=== PATIENT | female | born 1980 | race Caucasian/White ===

== ENCOUNTER 2024-12-29 13:58 | Outpatient (CLI) | payer OTHER, SELFPAY ==
--- NOTE | ~2024-12-29 | MR_ITS ---
EXAMINATION: MR brain/brain stem wo con DATE: 12/29/2024 14:36 INDICATION: Epilepsy TECHNIQUE: Magnetic resonance imaging (MRI) of the brain and brainstem was performed without intraven ous contrast. Sequences included sagittal and axial T1-weighted SE, axial diffusion-weighted FS SE, a xial T2*-weighted GRE, axial T2-weighted FLAIR Propeller, axial T2-weighted Propeller, coronal T2-meri ghted FLAIR, and coronal T1-weighted 3D FSPGR. Apparent diffusion coefficient (ADC) maps were create d. COMPARISON: None. FINDINGS: There are no areas of restricted diffusion to suggest acute infarction. No intracranial hemorrhage or abnormal intracranial mass lesion. There are scattered areas of nonspecific increased T2-weighted si gnal intensity in the cerebral white matter, predominantly involving the deep and periventricular whi te matter. Normal and symmetric bilateral hippocampi. No evident lizarraga matter heterotopias or other ne uronal migrational abnormalities identified. There are no intraparenchymal signal abnormalities seen on the other pulse sequences. The ventricles are symmetric and normal in size. There are no abnormal extra-axial fluid collections. Flow voids are seen in the cerebral arteries on the T2-weighted sequen hadley consistent with their expected patency. Mucosal thickening in the paranasal sinuses, moderate at the bilateral ethmoid and maxillary sinuses and mild in the bilateral sphenoid and frontal sinuses. V isualized orbits and soft tissues are unremarkable. IMPRESSION: 1. Normal brain. Reviewed, dictated and finalized at location A. IMPRESSION: 1. Normal brain.
== END 2024-12-29 13:59 | disposition home or self-care (01) ==
PROVIDERS: PCP Family Medicine Sports Medicine; Visit Provider Student in an Organized Health Care Education/Training Program
DX: G40.909 Epilepsy, unspecified, not intractable, without status epilepticus (principal)
CPT/HCPCS: 70551

== ENCOUNTER 2025-02-02 08:45 | Outpatient (CLI) | payer OTHER, SELFPAY ==
--- OUTSIDE RECORDS SUMMARY | 2025-02-02 08:53 | XMS_ITS | Clinical Summary ---
Author Organization [address] Address [address] [place] [id number] Care Team Providers Care Med Dir Name Role Phone Celina Aleman DO Primary Care Provider [phone] Allergies Active Allergy Reactions Criticality Noted Date Comments Sulfa (Sulfonamide Antibiotics) Vomiting High 02/2012 Medications albuterol HFA (PROVENTIL HFA,VENTOLIN HFA,PROAIR HFA) 90 mcg/actuation inhaler Inhale 2 puffs every 4 (four) hours as needed 0 Active cholecalciferol (VITAMIN D-3) 25 mcg (1,000 unit) tablet Take 1,000 Units by mouth daily Active lamoTRIgine (LaMICtal) 150 mg tablet Take 1 tablet by mouth 2 (two) times a day 8 Active zolpidem (AMBIEN) 5 mg tabletIndicatio ns:Sleep-Onset Insomnia Take 1 tablet (5 mg total) by mouth nightly as needed for sleep 30 tablet 3 1 Active fluticasone propionate (FLONASE) 50 mcg/actuation nasal sprayIndication s:MYRA (obstructive sleep apnea) Administer 2 sprays into each nostril daily 1 spray 11 1 Active valACYclovir (VALTREX) 500 mg tablet 1 Active armodafiniL (NUVIGIL) 150 mg tabletIndicatio ns: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 Because of her slight increase in the AHI, I will increase the CPAP setting to 10 cm of water. Her DME supplier is [employer]. She will follow-up here in 3 months. She will contact [employer] to change styles of mask when time permits. Assessment & Plan (05/19/2021 3:22 PM CDT): I did encourage the patient to use the CPAP more consistently. She is making progress. I will order Flonase and Zyrtec for her to use at bedtime to see if this will decrease the nasal congestion and drainage to a lower to use the unit for longer periods of time. I will also send an order to [employer] in [place], [place] for her to pick out a different style of mask. Assessment & Plan (01/25/2021 4:02 PM CDT): I encouraged the patient to use the Ambien 5 mg at bedtime to allow her to use the CPAP consistently at 8 cm water pressure. Hopefully, consistent CPAP use will improve her daytime hypersomnia. She should follow-up here in 3 months. Assessment & Plan (11/22/2020 4:30 PM PORTABLE FEED MILL OPERATOR): Patient continue to wear her CPAP at 8 cm water pressure while sleeping. 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 I will give her a prescription for Nuvigil 150 mg take in the morning. Assessment & Plan (05/19/2021 3:24 PM CDT): I did tell the patient that she would be eligible for stimulant therapy if she becomes compliant with her CPAP unit and the hypersomnia persists. I also recommended that she restart the vitamin-D. Assessment & Plan (01/25/2021 4:03 PM CDT): The patient still has hypersomnia but has not been consistent in her CPAP use. I did tell her that I would be willing to order stimulant medication for her if she continues to have daytime hypersomnia with consistent CPAP use. Assessment & Plan (11/22/2020 4:30 PM PORTABLE FEED MILL OPERATOR): I will give the patient Ambien 5 mg to see if this will help consolidate her sleep at night. The patient will call in if she experiences any side effects. If the Ambien does consolidate her sleep. The next possible medication would be to start Nuvigil. Primary insomnia 11/22/2020 Assessment & Plan (07/21/2021 3:17 PM CDT): The patient is not having any difficulty at this time initiating sleep and is no longer taking Ambien. Assessment & Plan (05/19/2021 3:24 PM CDT): She does have Ambien to use at bedtime at 5 mg p.o.. Assessment & Plan (01/25/2021 4:03 PM CDT): The patient did state that the Ambien 5 mg at bedtime did help consolidate her sleep and I encouraged her to use a consistently with the CPAP in place. Assessment & Plan (11/22/2020 4:30 PM PORTABLE FEED MILL OPERATOR): The patient was given Ambien 5 mg p.o. q.h.s.. Low vitamin D level 11/22/2020 Overview (11/22/2020): The patient is currently on vitamin-D supplement. Assessment & Plan (07/21/2021 3:17 PM CDT): The patient is currently on vitamin-D supplementation. Medical History Medical History Date Comments Sleep apnea, obstructive Family History Medical History Relation Name Comments Diabetes Father Heart attack Father Cancer Mother Relation Name Status Comments Father Alive Mother Alive breast CA Social History Tobacco Use Types Packs/Day Years Used Date Smoking Tobacco: Never Smokeless Tobacco: Never AUDIT-C Answer Date Recorded Q1: How often do you have a drink containing alc ohol? Never 07/21/2021 Average Number of Drinks Not on file Q3: How often do you have si x or more drinks on one occasion? Never 07/21/2021 Personal Safety Answer Date Recorded Getting School Help Needed Not on file 11/18 Comments Unknown Sex and Gender Information Value Date Recorded Sex Assigned at Not on file Legal Sex Female 1:00 AM PORTABLE FEED MILL OPERATOR Gender Identity Not on file Sexual Orientation Not on file Obstetrics History Last Filed Vital Signs Vital Sign Reading Time Taken Comments Blood Pressure 116/72 07/21/2021 2:15 PM CDT Pulse 62 07/21/2021 2:15 PM CDT Temperature 36.6 C (97.8 F) 07/21/2021 2:15 PM CDT Respiratory Rate 18 07/21/2021 2:15 PM CDT Oxygen Saturation 98% 07/21/2021 2:15 PM CDT Inhaled Oxygen Concentration - - Weight 87.5 kg (193 lb) 07/21/2021 2:15 PM CDT Height 162.6 cm (5' 4 ) 07/21/2021 2:15 PM CDT Body Mass Index 33.13 07/21/2021 2:15 PM CDT Plan of Treatment Not on file Insurance [employer] [facility] Member Subscriber Plan / Payer (Ef fective 2019-Present) Name:Vivi Sanford Member ID:[id number] Relation to Subscriber:Self Name:Vivi Sanford Subscriber ID:[id number] Payer ID:[id number] Type:[employer] HMO/PPO Address: [facility] [id number] [place] [id number] COUNT INCLUDES THE [facility] [id number] Member Subscriber Plan / Payer (Ef fective 2020-Present) Name:DameoncraigVivi Member ID:[id number] Relation to Subscriber:Self Name:Juvenal Vivi Arroyo Subscriber ID:[id number] Payer ID:[id number] Type:[employer] HMO/PPO Address: [place] [address] Care Teams Med Dir Relationship Specialty Start Date End Date Celina Aleman DO [address] [place] [address] [place] [id number] PCP - General 10/30/19
--- OUTSIDE RECORDS SUMMARY | 2025-02-02 08:53 | XMS_ITS | Encounter Summary ---
Author Organization [facility] Address [address] [place] [address] Care Team Providers Care Industrial Maintenance Electrician Name Role Phone Celina Aleman DO Primary Care Provider [phone] Encounter Details Date Type Department Care Team (Late st Contact Info) Description 06/27/2023 MyCintelloCutt Message Enc [facility] Family & Internal Medicine [address] [id number] Mychart, [facility] Provider Screening Social History Tobacco Use Types Packs/Day Years Used Date Smoking Tobacco: Never Smokeless Tobacco: Never Alcohol Use Standard Drinks/Week Comments Yes 0 (1 standard drink = 0.6 oz pur e alcohol) occasionally Comments No Sex and Gender Information Value Date Recorded Sex Assigned at Female 07/20/2020 11:24 AM CDT Legal Sex Female 6:34 PM CDT Gender Identity Female 07/20/2020 11:24 AM CDT Sexual Orientation Straight 07/20/2020 11 :24 AM CDT documented as of this encounter Plan of Treatment Upcoming Encounters Date Type Department Care Team (Late st Contact Info) Description 03/09/2025 7:00 AM CDT Office Visit [facility] [address] [place] [address] Sravanthi Dickson V, [place] [address] [place] [phone] documented as of this encounter Visit Diagnoses Not on filedocumented in this encounter Additional Health Concerns Infection Onset Date Last Indicated Resolved Time COVID-19 Rule Out 11/15/2023 11/15/2023 11/15/2023 3:46 PM ANIMAL KILLER COVID-19 Rule Out 09/25/2024 09/25/2024 09/25/2024 5:48 PM ANIMAL KILLER documented as of this encounter Care Teams Industrial Maintenance Electrician Relationship Specialty Start Date End Date Celina Aleman DO [address] [place] [address] [address] [place], [place] [phone] PCP - General FAMILY PRACTICE 01/01/20 documented as of this encounter
--- OUTSIDE RECORDS SUMMARY | 2025-02-02 08:53 | XMS_ITS | Clinical Summary ---
Author Organization [facility] Address [address] [place] [address] Care Team Providers Care Dynamics Ax Developer Name Role Phone Celina Aleman DO Primary Care Provider Allergies Active Allergy Reactions Criticality Noted Date Comments Sulfa Antibiotics Vomiting High 03/29/2012 Medications vitamin D3, cholecalciferol, (VITAMIN D) 1000 UNIT Tab tablet Take 1 tablet (1,000 Units total) by mouth daily. Active lamoTRIgine (LAMICTAL) 150 MG tabletIndications :Seizure disorder (CMS/HCC HHS/HCC) Take 1 tablet (150 mg total) by mouth 2 (two) times daily. 180 tablet 1 4 Active albuterol sulfate HFA 108 (90 Base) MCG/ACT inhalerIndication s:Bronchitis,Seas onal allergies Inhale 2 puffs into the lungs every 4 (four) hours as needed for Wheezing. 18 g 12 4 Active montelukast (SINGULAIR) 10 MG tabletIndications :Mild intermittent asthma with exacerbation ([facility]) Take 1 tablet (10 mg total) by mouth nightly at bedtime. 30 tablet 5 Active fluticasone-salme terol (WIXELA INHUB) 250-50 MCG/ACT inhalerIndication s:Mild intermittent reactive airway disease without complication ([facility]/HCC),Acute bronchitis, unspecified organism Inhale 1 puff into the lungs 2 (two) times daily. 14 each 5 Active topiramate (TOPAMAX) 25 MG tabletIndications :Class 1 obesity due to excess calories with serious comorbidity and body mass index (BMI) of 32.0 to 32.9 in adult,History of headache Take 1 tablet (25 mg total) by mouth 2 (two) times daily for 30 days. 60 tablet 5 02/05/20 25 Active Phentermine HCl 15 MG CapIndications:Cl ass 1 obesity due to excess calories with serious comorbidity and body mass index (BMI) of 32.0 to 32.9 in adult Take 15 mg by mouth daily for 30 days. 30 capsule 5 02/05/20 25 Active Phentermine HCl 8 MG TabIndications:Cl ass 1 obesity due to excess calories with serious comorbidity and body mass index (BMI) of 32.0 to 32.9 in adult Take 8 mg by mouth every evening for 30 days. 30 tablet 5 02/05/20 25 Active topiramate (TOPAMAX) 25 MG tabletIndications :Class 1 obesity due to excess calories with serious comorbidity and body mass index (BMI) of 32.0 to 32.9 in adult,History of headache Take 1 tablet (25 mg total) by mouth 2 (two) times daily. 60 tablet 5 01/06/20 25 Discontinu ed(Reorder ) Phentermine HCl 8 MG TabIndications:Cl ass 1 obesity due to excess calories with serious comorbidity and body mass index (BMI) of 32.0 to 32.9 in adult Take 8 mg by mouth every evening. Part of 15mg in am and 8mg in pm 30 tablet 5 01/06/20 25 Discontinu ed(Reorder ) Phentermine HCl 15 MG CapIndications:Cl ass 1 obesity due to excess calories with serious comorbidity and body mass index (BMI) of 32.0 to 32.9 in adult Take 15 mg by mouth daily. Part of 15mg in am and 8mg in pm 30 capsule 5 01/06/20 25 Discontinu ed(Reorder ) Active Problems Problem Noted Date Diagnosed Date Dysfunction of both eustachian tubes 11/14/2024 Class 1 obesity due to exces s calories with serious comorbidity and body mass index (BMI) of 32.0 to 32.9 in adult 07/29/2024 Prediabetes 07/29/2024 Vitamin D deficiency 11/22/2020 Overview (09/15/2021): The patient is currently on vitamin-D supplement. Last Assessment & Plan: The patient is currently on vitamin-D supplementation. MYRA (obstructive sleep apnea) 11/22/2020 Overview (09/15/2021): Last Assessment & Plan: The patient is benefiting from CPAP at 8 cm water pressure. Because of her slight increase in the AHI, I will increase the CPAP setting to 10 cm of water. Her DME supplier is [employer]. She will follow-up here in 3 months. She will contact [employer] to change styles of mask when time permits. Primary insomnia 11/22/2020 Overview (09/15/2021): Last Assessment & Plan: The patient is not having any difficulty at this time initiating sleep and is no longer taking Ambien. Epilepsy complicating pregna ncy, childbirth, or puerperium, antepartum ([facility]) 03/29/2012 Hypersomnia due to medical condition 03/29/2012 Overview (09/15/2021): Last Assessment & Plan: The patient is complying with CPAP therapy and remains sleepy during the day. I will give her a prescription for Nuvigil 150 mg take in the morning. Encounters Date Type Department Care Team Description 01/05/2025 3:40 PM CDT Office Visit [address] [place], [place] [phone] Mikel Dickson MD Follow Up (Patient is here for a 2 week weight management follow up. ) 01/05/2025 Travel 12/29/2024 Scan HEALTH INFO SRVCS Scanned, [facility] MRI (SCAN) 12/22/2024 7:00 AM CDT Office Visit [place] [address] [place] [address] Sravanthi Dickson FNP-BC Follow Up (Pt is here for a weight management follow up) 12/22/2024 Travel 12/01/2024 8:20 AM CDT Office Visit [facility] [address] [place] [address] Mikel Dickson MD Follow Up (Pt is here for a weight management f/u, Pt states he is doing better since her cough is going away. ) 12/01/2024 Travel 11/14/2024 7:00 AM TISSUE INSERTER Office Visit [facility] [address] [place] [address] Sravanthi Dickson FNP-BC Weight Check (WEIGHT MANAGEMENT FOLLOW UP - 2 week weight f/u/) 11/14/2024 Travel from Last 3 Months Immunizations Immunization Administration Dates Next Due PFIZER COVID-19 (ORIGINAL FO RMULATION, PURPLE CAP) mRNA, LNP-S, PF, 30 MCG/0.3 ML DOSE 06/09/2021,05/19/2021 Family History Medical History Relation Comments Breast Cancer Mother Relation Status Comments Father Alive Coronary artery disease, diabetes, [place], CABG,mi , cabgx4 Mother Alive Osteoarthritis Sister Alive Social History Tobacco Use Types Packs/Day Years Used Date Smoking Tobacco: Never Smokeless Tobacco: Never Tobacco Cessation:Counseling Given: Not Answered Alcohol Use Standard Drinks/Week Comments Yes 0 (1 standard drink = 0.6 oz pur e alcohol) occasionally PHQ-2 Answer Date Recorded Patient Health Questionnaire-2 Score 0 12/22/2024 Comments No Sex and Gender Information Value Date Recorded Sex Assigned at Female 07/20/2020 11:24 AM CDT Legal Sex Female 6:34 PM CDT Gender Identity Female 07/20/2020 11:24 AM CDT Sexual Orientation Straight 07/20/2020 11 :24 AM CDT Last Filed Vital Signs Vital Sign Reading Time Taken Comments Blood Pressure 106/76 01/05/2025 3:40 PM CDT Pulse 80 01/05/2025 3:40 PM CDT Temperature 37.1 C (98.7 F) 01/05/2025 3:40 PM CDT Respiratory Rate 16 01/05/2025 3:40 PM CDT Oxygen Saturation 99% 01/05/2025 3:40 PM CDT Inhaled Oxygen Concentration - - Weight 88.5 kg (195 lb) 01/05/2025 3:40 PM CDT Height 165.1 cm (5' 5 ) 01/05/2025 3:40 PM CDT Body Mass Index 32.45 01/05/2025 3:40 PM CDT Plan of Treatment Upcoming Encounters Date Type Department Care Team (Late st Contact Info) Description 03/09/2025 7:00 AM CDT Office Visit [facility] [address] [place], [place] [phone] Sravanthi Dickson V, [facility]- [address] [place] [phone] Health Maintenance Due Date Last Done Comments Cervical Cancer Screening Pa p Smear (Age 30 to 64) Every 3 Years 1982 Annual Physical 1985 Hepatitis C 2000 DTaP, Tdap and Td Vaccines ( 1 - Tdap) 2001 Hepatitis B Vaccines (1 of 3 - 19+ 3-dose series) 2001 Pneumococcal Vaccine: Pediatrics (0 to 5 Years) and At-Risk Patients (6 to 49 Years) (1 of 2 - PCV) 2001 Cervical Cancer Screening Pa p with HPV Testing (Age 30 to 64) Every 5 Years 2012 Cervical Cancer Screening wi th HPV 2012 COVID-19 Vaccine (3 - 2023-2 5 season) 2024 06/09/2021, 05/19/2021 Mammogram Screening 04/14/2026 04/14/2024 PHQ-2 (Physician [place]) Completed 12/22/2024 HPV Vaccines Aged Out No longer eligi ble based on patient's age to complete this topic Meningococcal B Vaccine Aged Out No l onger eligible based on patient's age to complete this topic Meningococcal Vaccine Aged Out No dayne jonathon eligible based on patient's age to complete this topic RSV Immunizations Under 20 Months Aged Out No longer eligible b ased on patient's age to complete this topic Procedures Procedure Name Priority Date/Time Associated Diagnosis Comments MRI GENERIC 12/29/2024 MG SCREENING W CHARLETTE LARON DIGI Routine 04/14/2024 4:15 PM CDT Encounter for screening mammogram for malignant neoplasm of breast from Last 3 Months or Most Recently Relevant to Health Maintenance Results * MRI GENERIC (12/29/2024) Anatomical Region Laterality Modality Other 12/29/2024 us [facility] Scanned SCANNING Final Resu lt * MG SCREENING W CHARLETTE LARON DIGI (04/14/2024 4:15 PM CDT) Anatomical Region Laterality Modality Breast Bilateral Mammography 04/15/2024 12:5 6 PM CDT Impressions 04/15/2024 2:28 PM CDT ===== IMPRESSION: ===== 1. No mammographic evidence of malignancy. Assessment: ACR BI-RADS 2 - BENIGN FINDING(S) Recommendation: 1:Routine Screening Bilateral Comments: Ordered By: CELINA ALEMAN Interpreted By: Kanwal Longoria, 04/15/2024 12:56 PM Narrative 04/15/2024 2:28 PM CDT EXAMINATION: Digital bilateral screening mammogram with 3-D tomosynthesis EXAM DATE/TIME: 04/14/2024 3:38 PM REASON FOR EXAM: Routine screening Mother with breast carcinoma age 35 COMPARISON: Baseline exam Technique: Digital screening mammography of both breasts was performed in addition to 3-D Tomosynthesis technique. This study was read with the assistance of a computer-aided detection system. Tissue density: There are scattered areas of fibroglandular density. Findings: There is no focal asymmetry, dominant mass lesion, area of skin thickening, or cluster of suspicious appearing calcifications in either breast to suggest malignancy. Benign lymph nodes in the upper outer quadrants of both breasts. us Celina Aleman DO MAMMO Final Result from Last 3 Months or Most Recently Relevant to Health Maintenance Insurance [employer] [facility] Care Teams Dynamics Ax Developer Relationship Specialty Start Date End Date Celina Aleman DO [address] [place] [address] [place] [address] PCP - General FAMILY PRACTICE 01/01/20
--- OUTSIDE RECORDS SUMMARY | 2025-02-02 08:53 | XMS_ITS | Clinical Summary ---
Author Organization [facility] Address [address] [place] [address] Care Team Providers Care Marketing Area Manager Name Role Phone Bennie Gomez MD Primary Care Provider [phone] Source Comments [facility],non-owned Affiliates and Associated Physician Practices is amultiple site organization consisting of ambulatory clinics and hospital sitesin [place], [place], [place] and [place]. This disclosure is being madepursuant to the Care Everywhere program and may not contain all information available regarding this patient. 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 Gender Identity Not on file Sexual Orientation Not on file Plan of Treatment Health Maintenance Due Date Last Done Comments LIPID TESTING 1982 MAMMOGRAM 1982 HIV SCREENING 1997 HEPATITIS C SCREENING 10/16/2000 DTAP/TDAP/TD VACCINES (1 - Tdap) 2001 HEPATITIS B VACCINE (1 of 3 - 19+ 3-dose series) 2001 COVID-19 VACCINE ( - 2023-2 5 season) 2024 DEPRESSION SCREENING 09/24/2024 INFLUENZA VACCINE (Season Ended) 2025 ZOSTER VACCINE (1 of 2) 2032 HIB VACCINE Aged Out No longer eligi ble based on patient's age to complete this topic HPV VACCINE Aged Out No longer eligi ble based on patient's age to complete this topic MENINGOCOCCAL (Group B) VACC INE SHARED DECISION-MAKING Aged Out No longer eligibl e based on patient's age to complete this topic MENINGOCOCCAL GROUPS A/C/Y/W VACCINE Aged Out No longer eligible b ased on patient's age to complete this topic PNEUMOCOCCAL VACCINE Aged Out No long er eligible based on patient's age to complete this topic Care Teams Marketing Area Manager Relationship Specialty Start Date End Date Bennie Gomez MD [address] [place] [address] PCP - General 02/28/10
--- OUTSIDE RECORDS SUMMARY | 2025-02-02 08:53 | XMS_ITS | Referral Summary ---
Author Organization [address] Address [address] [place] [id number] Care Team Providers Care Sleever Name Role Phone Celina Aleman DO Primary Care Provider [phone] Allergies Active Allergy Reactions Criticality Noted Date [...] also send an order to [facility] in [place], [place] for her to pick out a [...] months. Assessment & Plan (11/22/2020 4:30 PM BAG WORKER): Patient continue to wear her CPAP at [...] use. Assessment & Plan (11/22/2020 4:30 PM BAG WORKER): I will give the patient Ambien 5 [...] place. Assessment & Plan (11/22/2020 4:30 PM BAG WORKER): The patient was given Ambien 5 mg p.o. q.h.s.. Low vitamin D level 11/22/2020 Overview (11/22/2020): The patient is currently on vitamin-D supplement. Assessment & Plan (07/21/2021 3:17 PM CDT): The patient is currently on vitamin-D supplementation. Social History Tobacco Use Types Packs/Day Years Used Date Smoking Tobacco: Never Smokeless Tobacco: Never AUDIT-C Answer Date Recorded Q1: How often do you have a drink containing alc ohol? Never 07/21/2021 Average Number of Drinks Not on file 021 Q3: How often do you have si x or more drinks on one occasion? Never 07/21/2021 Personal Safety Answer Date Recorded Getting School Help Needed Not on file 11/18 Comments Unknown Sex and Gender Information Value Date Recorded Sex Assigned at Not on file Legal Sex Female 1:00 AM BAG WORKER Gender Identity Not on file Sexual Orientation Not on file Last Filed Vital Signs Vital Sign Reading [...] Plan of Treatment Not on file Insurance [employer] [facility] [id number] Care Teams Sleever Relationship Specialty Start Date End Date Celina Aleman DO [address] [place] [address] [address] [place] [phone] PCP - General 10/30/19
--- OUTSIDE RECORDS SUMMARY | 2025-02-02 08:53 | XMS_ITS | Encounter Summary ---
Author Organization [facility] Address [address] [place] [address] Care Team Providers Care Director Inbound Sales Name Role Phone Keshia Fabian [facility] Primary Care Provider Dandy Celina Ennis DO Primary Care Provider Encounter Details Date Type Department Care Team (Late st Contact Info) Description 09/15/2016 Abstract [facility] CONVERSION [address] [place] [address] , Generic Conversion, Social History Tobacco Use Types Packs/Day Years [...] Encounters Date Type Department Care Team (Late Contact Info) Description 03/09/2025 7:00 AM CDT Office Visit [address] [place] [address] Sravanthi Dickson V, [address] [place] [id number] documented as of this encounter Visit Diagnoses Not on filedocumented in this encounter Additional Health Concerns Infection Onset Date Last Indicated Resolved Time COVID-19 Confirmed 06/24/2020 06/24/2020 0 12:33 AM 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 TEACHER COVID-19 Rule Out 06/24/2020 06/24/2020 06/25/2020 7:41 PM CDT COVID-19 Rule Out 09/15/2021 09/15/2021 09/15/2021 12:25 PM AUTISTIC TEACHER COVID-19 Rule Out 09/16/2021 09/16/2021 09/16/2021 4:20 PM AUTISTIC TEACHER COVID-19 Rule Out 11/15/2023 11/15/2023 11/15/2023 3:46 PM AUTISTIC TEACHER COVID-19 Rule Out 09/25/2024 09/25/2024 09/25/2024 5:48 PM AUTISTIC TEACHER documented as of this encounter Care Teams Director Inbound Sales Relationship Specialty Start Date End Date Keshia Fabian FNP PCP - General FAMILY PRACTICE 10/01/18 12/31/19 Celina Aleman DO [address] [place] [address] [place] [address] PCP - General FAMILY PRACTICE 01/01/20 documented as of this encounter
--- NOTE | 2025-02-02 10:44 | WPDNEUROLOGY ---
Neurology EEG Report General Information Date of Study: 02/02/25 TEST Electroencephalogram DIAGNOSIS epilepsy CONDITION OF RECORDING neurodiagnostic lab EEG NUMBER [id number] CLINICAL HISTORY history of seizure disorder. Patient reports that she has not had any major motor seizures for last 15 years. EEG DESCRIPTION The background activity consists of posterior dominant alpha rhythm at 10 hertz with an amplitude of 20-40 microvolts which appears moderately formed. Anteriorly low amplitude mixed frequency activity was seen. Hyperventilation was performed during which isolated bursts of generalized spike and wave discharge was noted this appeared more predominant in the frontotemporal area. Photic so her performed during which no significant abnormal background changes were seen. On several occasions relatively low amplitude frontally dominant by synchronous spikes as isolated bursts were seen. Stage I and 2 sleep were recorded during which vertex waves, sleep spindles and K complexes were seen. Later on high relatively high amplitude generalized spike and wave discharges were also seen which appear frontally dominant. IMPRESSION This is an abnormal EEG due to presence of generalized or bisynchronous spike and wave discharges seen as inter ictal abnormality on several occasions during this recording. This finding suggestive of seizure disorder of generalized type. No electrographic seizures were seen. Clinical correlation is recommended.
== END 2025-02-02 08:46 | disposition home or self-care (01) ==
LOC: ANHNEURO 08:49
PROVIDERS: PCP Family Medicine Sports Medicine; Visit Provider Psychiatry & Neurology Neurology
DX: R94.31 Abnormal electrocardiogram [ECG] [EKG] (principal); G40.909 Epilepsy, unspecified, not intractable, without status epilepticus
CPT/HCPCS: 95816